=== PATIENT | female | born 1975 | race Caucasian/White ===

== ENCOUNTER 2016-06-15 17:01 | Emergency (ER) | payer OTHER, MEDICAID ==
[2016-06-15] MEDS ORDERED: Dexamethasone Sodium Phos 4 mg/mL Vial IM STA (17:07)
--- NOTE | 2016-06-15 17:07 | ED Physician Chart ---
Chief Complaint/HPI - Patient Information Date Seen:: 06/15/16 Time Seen:: 17:06 Chief Complaint:: cough History of Present Illness:: 41-year-old female history of Down syndrome, brought in by mom and brother, complains of acute, constant, nonproductive, severe, worse at night, cough 5 days. Has associated upper respiratory congestion. History limited as patient has underlying Down's and severe social disability and is unable provide any history History provided by mother and brother Historian:: Family Member (mother and brother) Review:: Nurse's Note Reviewed Review of Systems - Review of Systems Other: Complete system review otherwise unremarkable except as noted in HPI. Past Medical History - Past Medical History Past Medical History: Other (Down syndrome) Family History: None Social History: Smoker, No Alcohol, No Drug Use, Lives With Parents Surgical History: None Psychiatricy History: None Medication: Reviewed Family Medical History - Family Member Brother Ethnicity: Hx Family Cancer: No Hx Family Congestive Heart Failure: No Hx Family Diabetes: No Hx Family Seizures: No Hx Family AIDS: No Hx Family COPD: No Physical Exam - Physical Examination Other:: INITIAL VITAL SIGNS: Reviewed by me GENERAL: Alert and interactive. No acute distress HEAD: Head is normocephalic and atraumatic EYES: EOMI. . No scleral icterus. No conjunctival injection ENT: Moist mucous membranes. NECK: Supple. No masses. Full range of motion RESPIRATORY: No tachypnea. Coarse breath sounds bilaterally. No wheezing, rales, or rhonchi CV: Regular rate and rhythm. No murmurs, rubs, or gallops ABDOMEN: Soft, non-distended, non-tender. No guarding. No rebound. No masses. EXTREMITIES: No deformity. No cyanosis. No edema. SKIN: Warm and dry. No obvious rashes. NEUROLOGIC: Alert and oriented. Face is symmetric. Speech is normal. Moves all extremities equally. Motor and sensory distally intact. Labs/Radiology/EKG Results - Lab Results Results: Lab Results 06/15/16 06/15/16 06/15/16 Range/Units 18:50 18:50 18:50 WBC 6.1 (4.8-10.8) Th/cmm RBC 4.02 (3.80-5.10) Mil/cmm Hgb 11.9 (11.7-15.5) gm/dL Hct 36.2 (35.0-45.0) % MCV 89.8 (81-100) fl MCH 29.7 (27.0-31.0) pg MCHC Differential 33.0 (28.0-36.0) pg RDW 15.2 (11.5-20.0) % Plt Count 234 (150-400) Th/cmm MPV 8.3 fl Neutrophils % 75.3 (40.0-80.0) % Lymphocytes % 17.6 L (20.0-50.0) % Monocytes % 4.5 (2.0-10.0) % Eosinophils % 2.4 (0.0-5.0) % Basophils % 0.2 (0.0-2.0) % Sodium 134 L (136-145) mEq/L Potassium 3.7 (3.5-5.1) mEq/L Chloride 107 (98-107) mEq/L Carbon Dioxide 25.6 (21.0-31.0) mEq/L Anion Gap 5.1 L (7.0-16.0) BUN 8 (7-25) mg/dL Creatinine 0.9 (0.6-1.2) mg/dL Est GFR ( Amer) > 60.0 (>90) ml/min Est GFR (Non-Af Amer) > 60.0 ml/min BUN/Creatinine Ratio 8.9 Glucose 140 H (70-105) mg/dL Whole Bld Lactic Acid 1.76 (0.60-2.00) mmol/L Calcium 8.8 (8.6-10.3) mg/dL Total Bilirubin 0.2 L (0.3-1.0) mg/dL AST 23 (13-39) U/L ALT 20 (7-52) U/L Alkaline Phosphatase 62 (34-104) U/L Total Protein 7.3 (6.0-8.3) gm/dL Albumin 3.3 L (3.7-5.3) gm/dL Globulin 4.0 gm/dL Albumin/Globulin Ratio 0.8 L (1.0-1.8) - Radiology Results Results: Single AP VIEW Portable Chest X-ray was interpreted independently and contemporaneously by Haile Mendoza MD: No cardiomegaly Normal mediastinum Bilateral haziness versus infiltrates No pneumothorax No soft tissue or bony abnormalities CT chest without contrast. Report per radiology Cardiomegaly Hazy interstitial lung markings No focal processes ED Septic Shock - . Is Septic Shock (SBP<90, OR Lactate>4 mmol\L) present?: No Reassessment (Disposition) - Reassessment Reassessment:: Patient has bronchitis. CT shows haziness but no focal process. Labs unremarkable. Discussed all findings with parents and brother. We'll provide prescription for antibiotics. Breathing treatment helped symptoms. Also gave antitussive and albuterol inhaler. PCP 1-2 days. Gave return to ER precautions. Mother/caregiver understands and agrees the plan. Reassessment Condition:: Improved - Diagnosis Diagnosis:: Bronchitis, acute - Aftercare/Follow up Instructions Aftercare/Follow-Up Instructions:: Counseled pt regarding lab results/diagnosis & need follow up, Refer to Discharge Instructions Medication Prescribed:: Azithromycin Pro Air albuterol inhaler Promethazine with codeine antitussive syrup - Patient Disposition Discharge/Transfer:: Home Time:: 20:08 Condition at Disposition:: Improved ED Discharge Plan - Patient Disposition Admit/Discharge/Transfer: PT DISCHARGED HOME Condition at Disposition: Improved Instructions: Bronchitis, [id number]
[2016-06-15] MEDS ORDERED: Albuterol/Ipratropium Neb 3 ML AERS HHN ONE ×2 (17:13→17:15)
[2016-06-15 17:14] VITALS: BP 130/65
[2016-06-15] MEDS ORDERED: Dexamethasone Sodium Phos 10 mg/mL PF Vial ONE (17:16)
[2016-06-15 19:15] LABS: % BASOPHILS 0.2 % (0.0-2.0); % EOSINOPHILS 2.4 % (0.0-5.0); % LYMPHOCYTES 17.6 % (20.0-50.0); % MONOCYTES 4.5 % (2.0-10.0); % NEUTROPHILS 75.3 % (40.0-80.0); HEMATOCRIT 36.2 % (35.0-45.0); HEMOGLOBIN 11.9 gm/dL (11.7-15.5); MEAN CELL VOLUME 89.8 fl (81-100); MEAN CORPUSCULAR HEMOGLOBIN 29.7 pg (27.0-31.0); MEAN PLATELET VOLUME 8.3 fl; NEUTROPHILE ABSOLUTE 4.6 Th/cmm (1.8-8.0); PLATELET COUNT 234 Th/cmm (150-400); RED BLOOD COUNT 4.02 Mil/cmm (3.80-5.10); RED CELL DISTRIBUTION WIDTH 15.2 % (11.5-20.0); WHITE BLOOD COUNT 6.1 Th/cmm (4.8-10.8)
[2016-06-15 19:34] LABS: ALB/GLOB RATIO 0.8 (1.0-1.8); ALKALINE PHOSPHATASE 62 U/L (34-104); ANION GAP 5.1 (7.0-16.0); BILIRUBIN,TOTAL 0.2 mg/dL (0.3-1.0); BUN - UREA NITROGEN 8 mg/dL (7-25); BUN/CREATININE RATIO 8.9; CALCIUM SERUM 8.8 mg/dL (8.6-10.3); CARBON DIOXIDE 25.6 mEq/L (21.0-31.0); CHLORIDE 107 mEq/L (98-107); CREATININE - SERUM 0.9 mg/dL (0.6-1.2); GLUCOSE 140 mg/dL (70-105); POTASSIUM SERUM 3.7 mEq/L (3.5-5.1); SGOT 23 U/L (13-39); SGPT/ALT 20 U/L (7-52); SODIUM SERUM 134 mEq/L (136-145)
--- NOTE | 2016-06-16 09:14 | Diagnostic Imaging Report ---
CHEST X-RAY: AP view INDICATION: Cough COMPARISON: None FINDINGS: Diffuse bilateral infiltrates are seen extensive within the right side. Exam is limited due to body habitus. Prominent right paratracheal soft tissue density is noted. Heart size is difficult to assess on this exam. There is probable spinal scoliosis. IMPRESSION: Limited exam due to body habitus. Diffuse bilateral infiltrates greatest within the right side. Clinical correlation and follow-up is recommended. Please refer follow-up CT chest for further details Prominent right paratracheal soft tissue density. Again refer to follow-up CT exam for further findings.
--- NOTE | 2016-06-16 10:22 | Diagnostic Imaging Report ---
CT Chest without IV contrast HISTORY: Cough, abnormal chest x-ray COMPARISON: Chest x-ray 06/15/2016. Technique: Axial images were obtained from the base of the neck to the upper abdomen without IV contrast. Reconstructions were made. Total DLP 270, CTD I 8.2 Findings: Exam is limited due to motion and lack of IV contrast. Exam is also limited due to body habitus. Multiple borderline prominent mediastinal lymph nodes are noted. A retroesophageal right subclavian artery is noted. Mild cardiomegaly is noted. No evidence of pericardial effusion. No evidence of an aortic aneurysm. The lung celaya demonstrate atelectatic changes. There are developing left perihilar infiltrates. 4 mm nodular opacity of the right middle lobe is also noted. No pleural effusions. The upper abdomen demonstrates hepatosplenomegaly. Degenerative changes of the spine are noted. IMPRESSION: Limited exam due to motion. Diffuse atelectatic lung changes with developing left perihilar infiltrates which may represent developing pneumonia. Clinical correlation and follow-up is recommended 5 mm right middle lobe nodular opacity, nonspecific and may be due to infectious or inflammatory process. Correlation with old exams be helpful comparison. Alternatively, follow-up CT examination 6 months is recommended for long-term assessment in order to exclude less likely neoplastic process. Mildly prominent mediastinal lymph nodes, nonspecific Retroesophageal right subclavian artery incidentally noted. Hepatosplenomegaly.
== END 2016-06-15 20:40 | disposition home or self-care (01) ==
LOC: ER 17:01
DX: J20.9 Acute bronchitis, unspecified (principal); Q90.9 Down syndrome, unspecified; F17.200 Nicotine dependence, unspecified, uncomplicated
CPT/HCPCS: 99285; 96372 ×2; 94640; 71010; 71250; 36415; 83605; 85025; 80053; 87040 ×2; J1885